=== PATIENT | female | born 1955 | race Caucasian/White ===

== ENCOUNTER 2020-05-25 11:48 | Emergency (ER) | payer OTHER, MEDICARE, SELFPAY ==
--- NOTE | ~2020-05-25 | XR_ITS ---
EXAMINATION: XR knee LT 3V DATE: 05/25/2020 12:48 INDICATION: Nontraumatic left knee pain and swelling TECHNIQUE: Anteroposterior, 2 oblique and crosstable lateral views of the left knee were obtained COMPARISON: None. FINDINGS: Alignment is normal. No fracture. Moderate to severe joint space narrowing in the medial compartment which could be underestimated on nonweightbearing imaging. Marginal osteophyte, moderate sized at the medial compartment and small at the lateral and patellofemoral compartments. Cortical irregularity a long the patellar apical ridge suggesting overlying high-grade chondromalacia. Likely reactive modera te sized left knee joint effusion. Subcutaneous varicosities along the medial side of the distal thig h and proximal calf. IMPRESSION: 1. 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 2. Likely reactive moderate sized left knee joint effusion. Reviewed, dictated and finalized at location A. IMPRESSION: 1. Tricompartmental osteoarthritis, moderate to severe in the medial compartmen t. 2. Likely reactive moderate sized left knee joint effusion.
[2020-05-25 11:53] VITALS: BP 140/57; PULSE 96; RESP 18; TEMP 37.6; O2SAT 99
--- NOTE | 2020-05-25 12:34 | ED.LOWEXIN ---
HPI - Extremity Injury (Lower) General Chief Complaint: Extremity Injury, Lower Stated Complaint: b/l knee pain Time Seen by Provider: 05/25/20 12:07 History of Present Illness HPI Narrative: Chronic bilateral knee pain. Was worse on the right, now the left is more painful. Increasing in intensity over the past few weeks. Now unable to walk long distances due to the pain. She was on diclofenac, but was taken a few weeks ago due to diverticulitis. No significant swelling, color change, trauma. Related Data Home Medications Medication Instructions Recorded Confirmed aspirin 81 mg PO DAILY 05/25/20 atorvastatin 40 mg PO DAILY 05/25/20 hydrochlorothiazide 25 mg PO DAILY 05/25/20 levothyroxine 88 mcg PO DAILY 05/25/20 lorazepam 1 mg PO HS PRN 05/25/20 losartan 50 mg PO BID 05/25/20 Allergies Allergy/AdvReac Type Severity Reaction Status Date / Time Penicillins AdvReac Hives Verified 05/25/20 12:05 Sulfa (Sulfonamide AdvReac Hives Verified 05/25/20 12:05 Antibiotics) Review of Systems Review of Systems: All systems reviewed & are unremarkable except as noted in HPI and below Constitutional: Constitutional: Denies fever(s) Cardiovascular: Cardiovascular: Denies chest pain Respiratory: Respiratory: Denies dyspnea Integumentary/Breasts: Skin/Breast: Denies rash PMFSH Past Medical History Medical History (Updated 05/26/20 @ 07:35 by John Murcia MD) Arthritis Social History Social History Gender identity (if verbalized by the patient): Female Exam Const: General: no acute distress and alert Nutritional Appearance: well nourished Orientation/consciousness: patient oriented x3 HENMT: Head: normal to inspection Resp: Effort & Inspection: normal respiratory effort Auscultation: clear to auscultation bilaterally Cardio: Rate: regular rate Rhythm: regular rhythm Skin: General skin exam: normal color Rashes: no rashes Wounds: no wounds Neuro: General: patient oriented x3, moves all extremities and CN's II-XI intact bilaterally Speech: normal speech Extrem: Other: Pain with ROM in knees bilaterally, remainder of exam grossly normal. Course Vital Signs Vital signs: Vital Signs Temperature 37.6 C H 05/25/20 11:53 Pulse Rate 96 05/25/20 11:53 Respiratory Rate 18 05/25/20 11:53 Blood Pressure 140/57 L 05/25/20 11:53 Pulse Oximetry 99 05/25/20 11:53 Temperature 37.6 C H 05/25/20 11:53 Pulse Rate 78 05/25/20 14:05 Respiratory Rate 18 05/25/20 14:05 Blood Pressure 138/76 05/25/20 14:05 Pulse Oximetry 100 05/25/20 14:05 MDM - Extremity Injury (Lower) MDM Narrative Medical decision making narrative: She has no sign of infection/inflammation on exam. She has severe arthritis on x-ray. Worsening of pain likely due to being taken off of her NSAID. I will provide a few days of [place] for pain relief until she can get in touch with her PCP for a more senior care solution. Medical Records Attestation: I reviewed the patient's medical records. Imaging Data Radiologist's impression: ITS Impressions Knee X-Ray 05/25/20 13:00 IMPRESSION: 1. 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 2. Likely reactive moderate sized left knee joint effusion. Discharge Plan Discharge Clinical Impression: Osteoarthritis Patient Disposition: Home, Self-Care Condition: Stable Instructions: Osteoarthritis (ED) Prescriptions: New hydrocodone-acetaminophen [[place]] 5-325 mg tablet 1 - 2 tablet PO Q6H PRN (Reason: pain) Qty: 10 RF: 0 No Action losartan 50 mg Tablet 50 mg PO BID RF: 0 atorvastatin 40 mg Tablet 40 mg PO DAILY RF: 0 aspirin 81 mg Tablet,Chewable 81 mg PO DAILY RF: 0 hydrochlorothiazide 25 mg Tablet 25 mg PO DAILY RF: 0 lorazepam 1 mg Tablet 1 mg PO HS PRN (Reason: Anxiety) RF: 0 levothyroxine 88
[2020-05-25 14:05] VITALS: BP 138/76; PULSE 78; RESP 18; O2SAT 100
== END 2020-05-25 14:07 | disposition home or self-care (01) ==
PROVIDERS: Emergency Provider Emergency Medicine; PCP Internal Medicine
DX: M17.12 Unilateral primary osteoarthritis, left knee (principal)
CPT/HCPCS: 73562; 99283; A9270